=== PATIENT | male | born 1965 | race Asian ===

== ENCOUNTER 2019-02-18 23:50 | Emergency (ER) | payer OTHER ==
[~2019-02-18] VITALS: Ht 172.7 cm; Wt 71.7 kg
[2019-02-18 23:50] VITALS: BP 116/75
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
--- NOTE | 2019-02-19 00:26 | Emergency Room Report ---
History of Present Illness General Chief Complaint: Alcohol Intoxication Source: Patient (Corey Asif MD) Present Illness HPI Patient is a 53-year-old male brought in by EMS after increased altered level of consciousness. Patient was noted to have unknown onset. Patient was brought in by EMS and noted to be somewhat somnolent. History is obtained from EMS. Patient is unknown past medical history. Patient reportedly had recent alcohol intake. History is markedly limited by patient's mental status. (Corey Asif MD) Allergies: Coded Allergies: No Known Allergies (Unverified , 02/18/19) Patient History Reviewed Nursing Documentation: PMH: Agreed; PSxH: Agreed (Corey Asif MD) Nursing Documentation-PMH Past Medical History: No Stated History (Corey Asif MD) Review of Systems All Other Systems: limited (Corey Asif MD) Physical Exam Vital Signs Date Time Temp Pulse Resp B/P (MAP) Pulse Ox O2 Delivery O2 Flow Rate FiO2 02/18/19 23:42 98.6 87 16 116/75 (89) 97 Room Air General Appearance: no apparent distress Head: normocephalic Eyes: bilateral eye PERRL ENT: hearing grossly normal Respiratory: normal inspection, lungs clear Cardiovascular #1: normal inspection, regular rate, rhythm, no edema Gastrointestinal: normal inspection Neurologic: other - quiet speech, oriented to name (Corey Asif MD) Medical Decision Making Diagnostic Impression: Primary Impression: Acute alcoholic intoxication Qualified Codes: F10.920 - Alcohol use, unspecified with intoxication, uncomplicated ER Course Patient presented for altered mental status. Differential diagnosis included but was not limited to ischemic stroke, subarachnoid hemorrhage, hypoglycemia, spinal cord injury, neurodegenerative disorder, urinary tract infection, hypoxemia. Patient was noted to have initial altered mental status as well as blood sugar in the 90s. Reportedly been drinking alcohol.Patient was noted to have significantly altered mental status. CT of the head was ordered due to patient's confusion. CT head read by radiology showed no evidence of acute intracranial hemorrhage or acute intracranial hemorrhage. Patient noted to have markedly elevated blood alcohol level. He was observed in the emergency department. He was noted to have gradual improvement in his mental status over time. He was given some medication due to nausea. Patient was noted to have unremarkable laboratory testing other than markedly elevated blood alcohol. He was endorsed to Dr. Aldana pending sobering. Labs Test 02/19/19 00:30 White Blood Count 7.4 K/UL (4.8-10.8) Red Blood Count 5.35 M/UL (4.70-6.10) Hemoglobin 16.9 G/DL (14.2-18.0) Hematocrit 48.0 % (42.0-52.0) Mean Corpuscular Volume 90 FL (80-99) Mean Corpuscular Hemoglobin 31.6 PG (27.0-31.0) Mean Corpuscular Hemoglobin Concent 35.2 G/DL (32.0-36.0) Red Cell Distribution Width 12.7 % (11.6-14.8) Platelet Count 184 K/UL (150-450) Mean Platelet Volume 6.6 FL (6.5-10.1) Neutrophils (%) (Auto) 65.6 % (45.0-75.0) Lymphocytes (%) (Auto) 25.3 % (20.0-45.0) Monocytes (%) (Auto) 6.0 % (1.0-10.0) Eosinophils (%) (Auto) 1.7 % (0.0-3.0) Basophils (%) (Auto) 1.4 % (0.0-2.0) Sodium Level 141 MMOL/L (136-145) Potassium Level 3.5 MMOL/L (3.5-5.1) Chloride Level 105 MMOL/L (98-107) Carbon Dioxide Level 26 MMOL/L (21-32) Anion Gap 10 mmol/L (5-15) Blood Urea Nitrogen 20 mg/dL (7-18) Creatinine 0.9 MG/DL (0.55-1.30) Estimat Glomerular Filtration Rate > 60 mL/min (>60) Glucose Level 110 MG/DL (74-106) Calcium Level 8.2 MG/DL (8.5-10.1) Total Bilirubin 0.2 MG/DL (0.2-1.0) Aspartate Amino Transf (AST/SGOT) 14 U/L (15-37) Alanine Aminotransferase (ALT/SGPT) 31 U/L (12-78) Alkaline Phosphatase 54 U/L (46-116) Total Protein 7.4 G/DL (6.4-8.2) Albumin 3.6 G/DL (3.4-5.0) Globulin 3.8 g/dL Albumin/Globulin Ratio 0.9 (1.0-2.7) Serum Alcohol 324 mg/dL (Corey Asif MD) ER Course Please see above note. At 9:00 the patient is fully ambulatory without any ataxia. He denies any suicidal homicidal ideation. Patient is stable for outpatient observation and treatment. (Willard Aldana MD) Last Vital Signs Date Time Temp Pulse Resp B/P (MAP) Pulse Ox O2 Delivery O2 Flow Rate FiO2 02/18/19 23:50 98.6 87 16 116/75 97 Room Air Status: improved (Corey Asif MD) Last Vital Signs Date Time Temp Pulse Resp B/P (MAP) Pulse Ox O2 Delivery O2 Flow Rate FiO2 02/19/19 08:07 97.6 82 16 111/70 99 Room Air Status: improved (Willard Aldana MD) Disposition: HOME, SELF-CARE Condition: Improved Corey Asif MD Feb 19, 2019 00:26 Willard Aldana MD Feb 19, 2019 07:58
--- NOTE | 2019-02-19 00:42 | NUR ---
ED Nurse Note: iv access established. blood collected; sent down to lab. patient sleeping comfortably with nad. vss. arousable and alert to name.
[2019-02-19 00:58] LABS: BASOPHILS % (AUTO) 1.4 % (0.0-2.0); EOSINOPHILS % (AUTO) 1.7 % (0.0-3.0); HEMOGLOBIN 16.9 G/DL (14.2-18.0); LYMPHOCYTES % (AUTO) 25.3 % (20.0-45.0); MEAN CORPUSCULAR VOLUME 90 FL (80-99); NEUTROPHILS % (AUTO) 65.6 % (45.0-75.0); PLATELET COUNT 184 K/UL (150-450); RED BLOOD COUNT 5.35 M/UL (4.70-6.10); RED CELL DISTRIBUTION WIDTH 12.7 % (11.6-14.8); WHITE BLOOD COUNT 7.4 K/UL (4.8-10.8)
[2019-02-19 01:05] LABS: ANION GAP 10 mmol/L (5-15); BLOOD UREA NITROGEN 20 mg/dL (7-18); CALCIUM 8.2 MG/DL (8.5-10.1); CARBON DIOXIDE 26 MMOL/L (21-32); CHLORIDE 105 MMOL/L (98-107); CREATININE 0.9 MG/DL (0.55-1.30); POTASSIUM 3.5 MMOL/L (3.5-5.1); SODIUM 141 MMOL/L (136-145)
[2019-02-19 01:10] LABS: ALANINE AMINOTRANSFERASE 31 U/L (12-78); ALBUMIN 3.6 G/DL (3.4-5.0); ALBUMIN/GLOBULIN RATIO 0.9 (1.0-2.7); ALKALINE PHOSPHATASE 54 U/L (46-116); ASPARTATE AMINO TRANSFERASE 14 U/L (15-37); BILIRUBIN,TOTAL 0.2 MG/DL (0.2-1.0)
--- NOTE | 2019-02-19 01:22 | NUR ---
ED Nurse Note: pt down to imaging.
--- NOTE | 2019-02-19 02:40 | NUR ---
ED Nurse Note: PATIENT BACK FROM CT. SLEEPING COMFORTABLY WITH NAD.
[2019-02-19 03:00] VITALS: BP 111/72
--- NOTE | 2019-02-19 03:49 | Diagnostic Imaging Report ---
Indication: Altered mental status Technique: Contiguous 5 mm thick transaxial imaging of the head obtained in a Siemens Sensation [address] scanner. Soft tissue and bone windows generated. Automatic Exposure Control was utilized. Total Dose length Product (DLP): 1580.[address] Dose Index Volume (CTDIvol): 70.38 mGy Comparison: none Findings: There is mild prominence of the ventricles, basal cisterns, and cerebral sulci consistent with atrophy. There is no midline shift, edema, acute hemorrhage, mass effect, or abnormal extra-axial fluid collections. Bones are unremarkable. Impression: No acute intracranial bleed, mass effect or edema. Mild atrophy of the brain. [facility] has communicated the preliminary results to the Emergency Department. Their findings are largely concordant with this report. The CT scanner at [facility] is accredited by the [employer] and the scans are performed using dose optimization techniques as appropriate to a performed exam including Automatic Exposure control.
--- NOTE | 2019-02-19 04:00 | NUR ---
ED Nurse Note: PATIENT SLEEPING COMFORTABLY WITH NAD. AO2. DROWSY; FOLLOWS COMMANDS.
--- NOTE | 2019-02-19 05:48 | NUR ---
ED Nurse Note: PATIENT AWAKE. AO3 EPISODES OF CONFUSION. PROVIDED WITH SANDWICH AND WATER. PT ABLE TO STAND TO USE URINAL
[2019-02-19 06:08] VITALS: BP 122/76
--- NOTE | 2019-02-19 07:15 | NUR ---
ED Nurse Note: Patient sleeping in bed, semi-workman position. Regular, unlabored breathing noted. Bed in lowest position.
--- NOTE | 2019-02-19 07:15 | NUR ---
HAND-OFF: Report given to ANASTASIIA FLAHERTY. PATIENT SLEEPING COMFORTABLY WITH NAD. PT UNABLE TO WALK STEADY. ENDORSED PENDING DISCHARGE WHEN PATIENT IS SOBER.
[2019-02-19 08:07] VITALS: BP 111/70
--- NOTE | 2019-02-19 09:06 | NUR ---
ED Nurse Note: Patient is being discharged from medical care. Patient awake, alert, oriented x 4. Regular, unlabored breathing noted. Patient ambulating in hallway with steady gait. Patient called taxi to get home. Provided sandwiches and juice and tolerating oral intake without problem. D/C instruction given. All questions were answered.
== END 2019-02-19 09:06 | disposition home or self-care (01) ==
LOC: EDBD 23:50 → EMR 23:58
DX: F10.129 Alcohol abuse with intoxication, unspecified (principal); R41.82 Altered mental status, unspecified
CPT/HCPCS: 36415; 70450; 80053; 85025; 99284; G0480; 80329